=== PATIENT | female | born 1990 ===

== ENCOUNTER 2020-11-02 07:23 | Day surgery (SDC) | payer OTHER ==
[2020-11-02] MEDS ORDERED: PERCOCET 5-3251 EACH PO (10:01)
== END 2020-11-02 15:55 | disposition home or self-care (01) ==
LOC: CIR.AMB 07:23
PROVIDERS: ATTEND Obstetrics & Gynecology Gynecology
DX: Z30.2 Encounter for sterilization (principal); Z20.822 Contact with and (suspected) exposure to COVID-19